=== PATIENT | male | born 1980 | race Hispanic/Latino ===

== ENCOUNTER 2024-06-10 23:28 | Emergency (ER) | payer SELFPAY ==
[~2024-06-10] VITALS: Ht 180.3 cm; Wt 81.6 kg
--- NOTE | 2024-06-10 23:28 | NUR ---
NEY CALLED AND NOTIFIED OF NEED FOR EKG
[2024-06-10 23:29] VITALS: BP 140/82; PULSE 98; RESP 18; TEMP 97.3
[2024-06-10 23:56] LABS: BASOPHILS # (AUTO) 0.05 K/uL (0.00-0.20); BASOPHILS % (AUTO) 0.3 % (0.0-5.0); EOSINOPHILS # (AUTO) 0.04 K/uL (0.00-0.70); EOSINOPHILS % (AUTO) 0.3 % (0.0-8.0); HEMATOCRIT 38.6 % (42-54); IMMATURE GRANULOCYTE ABSOLUTE 0.06 K/uL (0-1); LYMPHOCYTES # (AUTO) 0.7 K/uL (1.0-4.8); LYMPHOCYTES % (AUTO) 4.4 % (21.0-51.0); MEAN CORPUSCULAR HEMOGLOBIN 32.9 pg (27.0-33.0); MEAN CORPUSCULAR HGB CONC 33.7 g/dL (32.0-36.0); MEAN CORPUSCULAR VOLUME 97.7 fL (79-99); MONOCYTES # (AUTO) 0.7 K/uL (0.1-1.0); MONOCYTES % (AUTO) 4.3 % (3.0-13.0); NEUTROPHILS # (AUTO) 14.2 K/uL (1.8-7.7); NEUTROPHILS % (AUTO) 90.3 % (40.0-77.0); PLATELET COUNT (AUTO) 204 K/uL (130-400); RED BLOOD CELL COUNT(AUTO) 3.95 MIL/uL (4.50-6.20); RED CELL DISTRIBUTION WIDTH 11.9 % (11.0-15.5); WHITE BLOOD COUNT (AUTO) 15.7 K/uL (4.8-10.8)
[2024-06-10] MEDS: ASPIRIN 325MG TAB PO ONE (23:58)
[2024-06-11 00:06] LABS: CREATININE 1.2 mg/dL (0.5-1.3); POTASSIUM 4.2 mmol/L (3.5-5.1)
[2024-06-11 00:24] LABS: B-TYPE NATRIURETIC PEPTIDE 7 pg/mL (0-100)
--- NOTE | 2024-06-11 01:00 | NUR ---
PT CALLED, NOT SEEN IN LOBBY. NO ANSWER
--- NOTE | 2024-06-11 01:17 | NUR ---
PT CALLED, NO ANSWER
--- NOTE | 2024-06-11 01:32 | NUR ---
PT CALLED, NO ANSWER, NOT IN MAIN LOBBY. NO COMMUNICATION WITH STAFF ON DESIRE TO LEAVE, SECURITY UNAWARE
--- NOTE | 2024-06-11 01:37 | ERN ---
General Chief Complaint: Chest Pain Stated Complaint: CHEST PAIN, BILATERAL LEG PAIN Time Seen by MD: 23:31 Source: patient History of Present Illness Initial Comments Patient is a 43-year-old male coming in to be evaluated for left-sided chest pain. Patient states that the left-sided chest pain started a couple of days ago hit one of his friends gave him a nitroglycerin sublingual states it helped his pain somewhat but he is here for further evaluation. Allergies: Coded Allergies: No Known Allergies (Unverified Allergy, Unknown, 06/10/24) Past Medical History Past Medical History: No Pertinent History Past Surgical History: None ROS Dictation CONSTITUTIONAL: No chills, no fever, no weakness, no diaphoresis, no malaise. HEAD/FACE: No signs of trauma. EENT: No eye pain, no blurred vision, no tearing, no double vision, no ear pain, no ear discharge, no nose pain, no nasal congestion, no throat pain, no throat swelling, no mouth pain. RESPIRATORY: No cough, no orthopnea, no SOB, no stridor, no wheezing. CARDIOVASCULAR: chest pain, no edema, no palpitations, no syncope. GASTROINTESTINAL/ABDOMINAL: No abdominal pain, no constipation, no diarrhea, no nausea, no vomiting. GENITOURINARY: No abnormal discharge, no dysuria, no frequent urination, no hematuria. No complaints of pain in the genitals. MUSCULOSKELETAL: No back pain, no gout, no joint pain, no joint swelling, no muscle pain, no muscle stiffness, no neck pain. INTEGUMENTARY: No change in color, no change in hair/nails, no dryness, no lesion, no lumps, no rash. NEUROLOGICAL/PSYCH: No anxiety, not depressed, no emotional problem, no headache, no numbness, no pre-existing deficit, no history of seizures, no tremors, no weakness. HEMATOLOGIC/LYMPHATIC: Not anemic, no history of blood clots, no apparent blee ding, no bruising, glands not swollen. All Systems Negative, Except as Noted. Physical Exam Physical Exam Dictation VITAL SIGNS: Reviewed. GENERAL APPEARANCE: Alert, oriented x3, no acute distress, obese. HEAD AND FACE: Non-traumatic. EYES: PERRL, pink conjunctivas, eyelid no trauma, anterior chamber clear. EARS: Pinnas intact and no signs of trauma or erythema. Ear canals clear and no discharge. TMs no erythema. NOSE: No discharge, no bleeding. OROPHARYNX: Mouth normal, teeth no caries, tongue pink. Pharynx clear, no erythema. Tonsils no exudates, no abscesses noted. Mucous membrane moist. NECK: Supple, non-tender, no thyromegaly, no masses, no JVD, no bruits. BREAST: Deferred. CHEST: No tenderness, no crepitus, no paradoxical movement, no retractions. LUNGS: Clear, well-ventilated, symmetric, no rales, no wheezing, no rhonchi, no stridor, good breath sounds bilaterally. HEART: Regular rate, regular rhythm, no murmur, no gallops. VASCULAR: No peripheral edema. ABDOMEN: Soft, positive bowel sounds, nondistended, no guarding, nontender, no rebound, no masses no hepatomegaly, no splenomegaly, no Deshpande's sign, no hernias. RECTAL: Deferred. GENITAL: Deferred. NEUROLOGICAL: Normal speech, gross motor function intact, gross sensory function intact. MUSCULOSKELETAL: Neck nontender, full range of motion, back nontender, full range of motion. EXTREMITIES: Nontender, full range of motion. SKIN: Color pink, dry, no turgor, no rash, no lacerations, no abrasions, no contusions. LYMPHATICS: Deferred. Results Laboratory and Microbiology Lab and Micro Result Laboratory Tests Test 06/10/24 23:44 White Blood Count 15.7 K/uL (4.8-10.8) H Red Blood Count 3.95 MIL/uL (4.50-6.20) L Hemoglobin 13.0 g/dL (14.0-18.0) L Hematocrit 38.6 % (42-54) L Mean Corpuscular Volume 97.7 fL (79-99) Mean Corpuscular Hemoglobin 32.9 pg (27.0-33.0) Mean Corpuscular Hemoglobin Concent 33.7 g/dL (32.0-36.0) Red Cell Distribution Width 11.9 % (11.0-15.5) Platelet Count 204 K/uL (130-400) Mean Platelet Volume 11.1 fL (7.5-10.5) H Immature Granulocyte % (Auto) 0.4 % (0-1) Neutrophils (%) (Auto) 90.3 % (40.0-77.0) H Lymphocytes (%) (Auto) 4.4 % (21.0-51.0) L Monocytes (%) (Auto) 4.3 % (3.0-13.0) Eosinophils (%) (Auto) 0.3 % (0.0-8.0) Basophils (%) (Auto) 0.3 % (0.0-5.0) Neutrophils # (Auto) 14.2 K/uL (1.8-7.7) H Lymphocytes # (Auto) 0.7 K/uL (1.0-4.8) L Monocytes # (Auto) 0.7 K/uL (0.1-1.0) Eosinophils # (Auto) 0.04 K/uL (0.00-0.70) Basophils # (Auto) 0.05 K/uL (0.00-0.20) Absolute Immature Granulocyte (auto 0.06 K/uL (0-1) Nucleated Red Blood Cells 0.0 % (0.0-0.19) White Cell Morphology Comment See comments Sodium Level 137 mmol/L (136-145) Potassium Level 4.2 mmol/L (3.5-5.1) Chloride Level 102 mmol/L (101-111) Carbon Dioxide Level 28 mmol/L (21-32) Blood Urea Nitrogen 17 mg/dL (7-18) Creatinine 1.2 mg/dL (0.5-1.3) Glomerular Filtration Rate Calc 77 mL/min (>90) Random Glucose 112 mg/dL (70-105) H Total Calcium 9.0 mg/dL (8.5-10.1) Total Creatine Kinase 204 U/L (21-232) Troponin I < 0.05 ng/mL (0.00-0.05) Troponin I High Sensitivity 6 ng/L (4-75) B-Type Natriuretic Peptide 7 pg/mL (0-100) Labs Reviewed?: Yes EKG/XRAY/US/CT/MRI EKG Comment 06/10/2024 time 11:29 p.m. Ventricular rate 93 Sinus rhythm [place] [address] wave elevation or depression MDM MDM: Differential diagnosis: Chest pain, NSTEMI, ACS, Patient is a 43-year-old male coming in to be evaluated for left-sided chest pain. Laboratory workup was being collected when nursing staff informed me that patient had eloped without notifying anybody. ED Course Orders Procedure Category Date Status Time Vital Signs Per CPOE 06/10/24 Transmitted Routine 23:31 B-Type Natriuretic LAB 06/10/24 Complete Peptide 23:31 Chest 1vw RAD 06/10/24 Logged 23:31 12 Lead Ekg Tracing- EKG 06/10/24 Logged Technical 23:31 Oxygen By Nc/Pulse Ox CPOE 06/10/24 Transmitted 23:31 Maintain Iv CPOE 06/10/24 Transmitted 23:31 Iv Insertion CPOE 06/10/24 Transmitted 23:31 Cardiac Monitoring CPOE 06/10/24 Transmitted 23:31 Pulse Oximetry With CPOE 06/10/24 Transmitted Vs And Prn 23:31 Cbc With Differential LAB 06/10/24 Complete 23:31 Activity: Br W/Brp CPOE 06/10/24 Transmitted With Assist 23:31 Creatine Kinase, Total LAB 06/10/24 Complete 23:31 Troponin I High LAB 06/10/24 Complete Sensitivity 23:31 Urinalysis Profile LAB 06/10/24 Logged 23:31 Troponin Poc Order LAB 06/10/24 Complete Only 23:31 Bedside Troponin-I LAB.ER 06/10/24 In Process (Poc) 23:31 Basic Metabolic Panel LAB 06/10/24 Complete 23:31 Drug Screen Urine LAB 06/10/24 Logged 23:46 Aspirin 325mg Tab PHA 06/11/24 Complete (Aspirin 325mg Tab) 00:00 Current Medications Medications (Trade) Dose Ordered Sig/[place] Route PRN Reason Start Time Stop Time Status Last Admin Dose Admin Aspirin (Aspirin 325mg Tab) 325 mg ONCE ONCE PO 06/11/24 00:00 06/11/24 00:01 DC 06/10/24 23:58 Vital Signs Date Time Temp Pulse Resp B/P (MAP) Pulse Ox O2 Delivery O2 Flow Rate FiO2 06/10/24 23:29 97.3 98 18 140/82 96 Room Air DX & DISP Disposition: AMA Departure Impression: Primary Impression: Chest pain Condition: Against Medical Advice Referrals: NONE (PCP) Time of Disposition: 01:37 SANGEETHA GUEVARA MD Jun 11, 2024 01:37
--- NOTE | 2024-06-11 06:24 | EKG ---
[facility] Test Date: 2024-06-10 Test Time: 23:29:14 Pat Name: KADE FLORES Department: [facility] Room: Gender: M [facility]: [id number] [phone] [id number] Requested By: SANGEETHA GUEVARA Order Number: [id number] Reading MD: Josefina Serrano Measurements Intervals [place] Rate: 93 P: 87 WA: 141 QRS: -58 QRSD: 87 T: 46 QT: 353 QTc: 440 Interpretive Statements Sinus rhythm Left axis deviation ST elev, probable normal early repol pattern No previous ECG available for comparison Electronically Signed On 06-11-2024 16:09:39 FIN[employer]CIAL SYSTEMS DIRECTOR by Josefina Serrano Please click the below link to view image of tracing.
== END 2024-06-11 01:42 | disposition left against medical advice (07) ==
LOC: EDH 23:28
DX: R07.89 Other chest pain (principal)
CPT/HCPCS: 36415; 80048; 82550; 83880; 84484; 85025; 93005; 99284